=== PATIENT | female | born 1960 | race Caucasian/White ===

== ENCOUNTER 2017-03-06 07:44 | Day surgery (SDC) | payer OTHER ==
[2017-03-06 08:36] VITALS: BMI 30.9
[2017-03-06] MEDS ORDERED: Propofol 10 mg/ml Inj (20 ML) ONE (10:02)
--- NOTE | 2017-03-06 10:10 | CP.SDSHP ---
Same Day Surgery H & P - History Proposed Procedure: EGD Pre-Op Diagnosis: SEE NOTES - Previous Medical/Surgical History Cardiac: Hypertension Pulmonary: Asthma Endocrine/Metabolic: Other Neuro: Seizure Disorder Pain: 4.Moderate Pain - Allergies Allergies: Allergies No Known Allergies Allergy (Verified 03/06/17 08:37) - Physical Exam General Appearance: N Vital Signs: Vital Signs 03/06/17 03/06/17 09:00 09:57 Temperature 97.8 F 97.8 F Pulse Rate 70 70 Respiratory 16 16 Rate Blood Pressure 119/77 119/77 O2 Sat by Pulse 100 100 Oximetry Mental Status: Alert & Oriented x3 Neuro: Other Heart: Other Lungs: Other GI: WNL - {Optional Preform as Required} Breast: WNL Abdomen: Other Rectal: Other Integument: WNL : WNL Ortho: Other ENT: WNL - Impression Pt. Evaluated Today:Candidate for Anesthesia & Procedure: Yes - Date & Time Time: 10:10 Short Stay Discharge - Short Stay Discharge Admitting Diagnosis/Reason for Visit: DYSPEPSIA Disposition: HOME/ ROUTINE
[2017-03-06] MEDS ORDERED: Pantoprazole 40 mg EC Tab PO STA (10:11)
[2017-03-06 10:38] VITALS: TEMP 98.7
[2017-03-06 10:51] VITALS: O2SAT 100
[2017-03-06 11:07] VITALS: RESP 14
[2017-03-06 11:24] VITALS: BP 107/61; PULSE 63
== END 2017-03-06 11:23 | disposition home or self-care (01) ==
LOC: C.ENDO 07:44
PROVIDERS: ATTEND Specialist
DX: K20.9 Esophagitis, unspecified (principal); K44.9 Diaphragmatic hernia without obstruction or gangrene; K29.70 Gastritis, unspecified, without bleeding
CPT/HCPCS: 43239; 88305; 88342; J2704; J3010

== ENCOUNTER 2017-04-03 08:27 | Day surgery (SDC) | payer OTHER ==
[2017-03-06 10:07] VITALS: BMI 30.9
--- NOTE | 2017-04-03 09:35 | CP.SDSHP ---
Same Day Surgery H & P - History Proposed Procedure: COLONSCOPY Pre-Op Diagnosis: SEE NOTES - Previous Medical/Surgical History Cardiac: Hypertension Pulmonary: Asthma Endocrine/Metabolic: Other Neuro: Backaches Misc: Other Pain: 4.Moderate Pain - Allergies Allergies: Allergies No Known Allergies Allergy (Verified 03/06/17 08:37) - Physical Exam General Appearance: N Vital Signs: Vital Signs 04/03/17 08:58 Temperature 97.7 F Pulse Rate 64 Respiratory 19 Rate Blood Pressure 128/81 O2 Sat by Pulse 97 Oximetry Mental Status: Alert & Oriented x3 Neuro: WNL Heart: Other Lungs: Other GI: Other - {Optional Preform as Required} Breast: WNL Abdomen: Other Rectal: Other Integument: WNL : WNL Ortho: Other ENT: WNL - Impression Pt. Evaluated Today:Candidate for Anesthesia & Procedure: Yes - Date & Time Time: 09:35 Short Stay Discharge - Short Stay Discharge Admitting Diagnosis/Reason for Visit: HEMORRHAGE OF ANUS AND RECTUM Disposition: HOME/ ROUTINE
[2017-04-03] MEDS ORDERED: Belladonna-Phenobarbital PO ONE ×2 (09:36→10:45)
[2017-04-03] MEDS ORDERED: Propofol 10 mg/ml Inj (20 ML) ONE ×2 (09:39→09:46)
[2017-04-03] MEDS ORDERED: Albuterol-Ipratrop 3 mg / 0.5 (3 ml) UD INH STA (10:02)
[2017-04-03 10:58] VITALS: TEMP 97.8
[2017-04-03 11:04] VITALS: O2SAT 100
[2017-04-03 12:05] VITALS: BP 141/77; PULSE 66; RESP 14
== END 2017-04-03 11:20 | disposition home or self-care (01) ==
LOC: C.ENDO 08:27
PROVIDERS: ATTEND Specialist
DX: K58.9 Irritable bowel syndrome, unspecified (principal); K62.5 Hemorrhage of anus and rectum; I10 Essential (primary) hypertension; K64.8 Other hemorrhoids; K55.20 Angiodysplasia of colon without hemorrhage; J45.909 Unspecified asthma, uncomplicated
CPT/HCPCS: 45380; 88305; 94640; J2704

== ENCOUNTER 2018-11-15 12:59 | Emergency (ER) | payer OTHER ==
[2018-11-15 13:00] VITALS: BMI 30.9
[2018-11-15 13:17] VITALS: RESP 18
--- NOTE | 2018-11-15 13:32 | C.PDOC ---
History Of Present Illness 58 y/o with htn c/o left knee pain for a month. seen by waste recycler and per pt, had neg venous doppler test. pt takes motrin for pain. denies trauma. sts pain worse today. Time Seen by Provider: 11/15/18 13:20 Chief Complaint (Nursing): Lower Extremity Problem/Injury Past Medical History Vital Signs: Last Vital Signs Temp 97.8 F 11/15/18 13:15 Pulse 77 11/15/18 13:15 Resp 18 11/15/18 13:15 BP 122/78 11/15/18 13:15 Pulse Ox 100 11/15/18 13:15 - Medical History PMH: Anxiety, Asthma, Bronchitis, Depression, Gastritis, Gall Bladder Disease, H TN, Hypercholesterolemia Denies: Chronic Kidney Disease Surgical History: Cholecystectomy, Endoscopy Family History: States: Unknown Family Hx - Social History Hx Alcohol Use: Yes Hx Substance Use: No - Immunization History Hx Tetanus Toxoid Vaccination: Yes Hx Influenza Vaccination: No Hx Pneumococcal Vaccination: No Review Of Systems Constitutional: Negative for: Fever, Chills, Weakness Cardiovascular: Negative for: Chest Pain Respiratory: Negative for: Cough, Shortness of Breath Musculoskeletal: Positive for: Leg Pain (left knee) Neurological: Negative for: Weakness, Numbness, Dizziness Physical Exam - Physical Exam Appears: Non-toxic Skin: Normal Color, Warm, Dry Head: Atraumatic, Normacephalic Neck: Normal ROM, Supple Chest: Symmetrical, No Deformity Cardiovascular: Rhythm Regular Respiratory: No Normal Breath Sounds Extremity: No Normal ROM (dec flexion left knee due to pain), Tenderness (left fibula, left posterior knee, lateral aspect, no erythema), No Calf Tenderness, No Swelling (Left foot and ankle), No Other (thigh tenderness, hip tenderness. ) Pulses: Left Femoral: Normal, Right Femoral: Normal, Left Dorsalis Pedis: Normal, Right Dorsalis Pedis: Normal Neurological/Psych: Oriented x3, Normal Speech, Normal Cognition, Normal Motor, Normal Sensation ED Course And Treatment O2 Sat by Pulse Oximetry: 100 (in RA) - Other Rad Left Knee X-ray X-Ray: Interpreted by Me, Viewed By Me Interpretation: Accession No. : [id number]. Patient Name / ID : SUE [id number] / [id number]. Exam Date : 11/15/2018 13:35:37 ( Approved ). Study Comment : Sex / Age : F / 58Y. Creator : Marianne Haji MD. Dictator : Marianne Haji MD. Auto Polisher : Qa Engineer : Marianne Haji MD. Approver2 : Report Date : 11/15/2018 14:23:39. My Comment : . Date of service: 11/15/2018. PROCEDURE: Left Knee Radiographs. HISTORY: Pain. COMPARISON: None. FINDINGS: BONES: Bone alignment is normal. There is periarticular bone demineralization. There is no acute displaced fracture or bone destruction. A focal area of sclerosis in the medial tibial plateau is statistically most compatible with a bone island. JOINTS: There is mild tricompartmental degenerative osteoarthrosis with reduced joint spaces, marginal osteophytes and tibial spiking, worse in the medial compartment. JOINT EFFUSION: There is a small suprapatellar joint effusion. OTHER FINDINGS: None. IMPRESSION: No acute displaced fracture or dislocation. Mild tricompartmental degenerative osteoarthrosis, worse in the medial compartment. Medical Decision Making Medical Decision Making: Impression: 58 year old female with pain and swelling to the left knee Plan: Patient given Toradol IM. Left knee X-ray ordered for patient. Re-evaluation. Patient feels better. Discussed results and plan with patient who expresses understanding. All questions answered and there is agreement with the plan to discharge home with instructions. Patient stable for discharge. Return if symptoms persist or worsen. Disposition Counseled Patient/Family Regarding: Studies Performed, Diagnosis, Need For Followup, Rx Given - Disposition Referrals: Orlin Queen III, MD [Staff Provider] - [facility] [Outside] Disposition: HOME/ ROUTINE Disposition Time: 15:14 Condition: IMPROVED Additional Instructions: Medicine sent to [facility] Use rodillera para el apoyo, Ibuprofeno para el dolor. Compresas fras varias veces al da a la rodilla para ayudar con el dolor y la hinchazn. Dyan un seguimiento con el Dr. Queen o llame a niño compaa de seguros o al servicio de conserjera o a niño mdico de atencin primaria para obtener ayuda para encontrar un ortopedista. Wear knee brace for support, Ibuprofen for pain. Cold compresses several times a day to knee to help with pain and swelling. Follow up with Dr Queen or call your insurance company or [employer] or your primary care doctor for help finding an orthopedist. Prescriptions: Ibuprofen [Motrin] 600 mg PO TID #30 tab Instructions: Knee Pain (DC) Forms: Gen Discharge Inst Chinese, [employer] (Chinese) Print Language: UPPER SORBIAN - Clinical Impression Clinical Impression: Left knee pain - PA / [employer] / Resident Statement MD/DO has reviewed & agrees with the documentation as recorded. (Caron Morales) - Scribe Statement The provider has reviewed the documentation as recorded by the Scribe (Caron Morales) All medical record entries made by the Scribe were at my direction and personally dictated by me. I have reviewed the chart and agree that the record accurately reflects my personal performance of the history, physical exam, medical decision making, and the department course for this patient. I have also personally directed, reviewed, and agree with the discharge instructions and disposition.
--- NOTE | 2018-11-15 14:27 | RAD ---
Date of service: 11/15/2018 PROCEDURE: Left Knee Radiographs. HISTORY: Pain. COMPARISON: None. FINDINGS: BONES: Bone alignment is normal. There is periarticular bone demineralization. There is no acute displaced fracture or bone destruction. A focal area of sclerosis in the medial tibial plateau is statistically most compatible with a bone island. JOINTS: There is mild tricompartmental degenerative osteoarthrosis with reduced joint spaces, marginal osteophytes and tibial spiking, worse in the medial compartment. JOINT EFFUSION: There is a small suprapatellar joint effusion. OTHER FINDINGS: None. IMPRESSION: No acute displaced fracture or dislocation. Mild tricompartmental degenerative osteoarthrosis, worse in the medial compartment.
[2018-11-15 15:30] VITALS: BP 146/90; PULSE 60; TEMP 98.3
[2018-11-15 21:38] VITALS: O2SAT 100
== END 2018-11-15 15:31 | disposition home or self-care (01) ==
LOC: C.ER 12:59
DX: M25.562 Pain in left knee (principal); E78.00 Pure hypercholesterolemia, unspecified; I10 Essential (primary) hypertension
CPT/HCPCS: 73562; 96372; 99285; J1885